=== PATIENT | male | born 1970 | race Hispanic/Latino ===

== ENCOUNTER 2020-08-05 14:40 | Observation (INO) | payer OTHER ==
[2020-08-05 15:26] LABS: #Basophils 0.1 thou/uL (0.0-0.2); #Eosinphils 0.1 thou/uL (0.0-0.7); #Lymphocytes 2.5 thou/uL (1.20-3.40); #Monocytes 0.6 thou/uL (0.11-0.59); #Neutrophils 4.7 thou/uL (1.40-6.50); %Basophils 0.7 % (0.0-1.0); %Eosinophils 0.9 % (0.0-10.0); %Lymphocytes 31.7 % (21.0-51.0); %Monocytes 7.3 % (0.0-10.0); %Neutrophils 59.4 % (42.0-75.0); Mean Corpuscular HGB CONC 34.4 g/dL (32.0-36.0); Mean Corpuscular Hemoglobin 30.9 pg (27.0-31.0); Mean Platelet Volume 8.1 fL (7.4-10.4); Platelet Count 257 thou/uL (130-400); RBC Distribution Width 11.8 % (11.5-14.5); Red Blood Cell (RBC) Count 5.19 mill/uL (4.70-6.10); White Blood Cell (WBC) Count 7.8 thou/uL (4.8-10.8)
--- NOTE | 2020-08-05 15:29 | RAD ---
EXAM: CHEST ONE VIEW HISTORY: Chest pain. Patient states intermittent left-sided chest pain for 3 months. COMPARISON: None FINDINGS: The cardiac silhouette and pulmonary vasculature are within normal limits. The lungs are clear. The o sseous structures are intact. IMPRESSION: No acute cardiopulmonary process.
[2020-08-05] MEDS ORDERED: Aspirin 325 MG TAB ONE (15:35)
[2020-08-05 16:01] LABS: Albumin 4.5 g/dL (3.5-5.0)
[2020-08-05 16:02] LABS: Chloride 104 mmol/L (98-107); Sodium 139 mmol/L (136-145)
[2020-08-05 16:03] LABS: Calcium 9.6 mg/dL (7.8-10.44); Glucose 102 mg/dL (70-105)
[2020-08-05 16:04] LABS: Globulin 3.3 g/dL (2.4-3.5); Protein, Total 7.8 g/dL (6.0-8.3)
[2020-08-05 16:05] LABS: Anion Gap 13 mmol/L (10-20); Bilirubin, Total 0.6 mg/dL (0.2-1.2); Carbon Dioxide 26 mmol/L (22-29)
[2020-08-05 16:06] LABS: Alkaline Phosphatase 101 U/L (40-110)
[2020-08-05 16:07] LABS: Calc. Creatinine Clearance 0 mL/min (70-130); Estimated GFR-MDRD 84
[2020-08-05 16:08] LABS: AST (SGOT) 27 U/L (5-34); BUN (Urea Nitrogen) 14 mg/dL (8.9-20.6)
[2020-08-05 16:09] LABS: ALT (SGPT) 22 U/L (8-55); Lipase 18 U/L (8-78)
[2020-08-05 16:23] LABS: CKMB 3.1 ng/mL (0-6.6)
[2020-08-05] MEDS ORDERED: Senokot S 8.6-50 MG TAB PO PRN (16:59)
[2020-08-05] MEDS ORDERED: Acetaminophen 325 MG TAB PO PRN (16:59)
[2020-08-05] MEDS ORDERED: Enoxaparin Sodium 80 MG/0.8 ML SYRINGE ONE (17:10)
[2020-08-05] MEDS ORDERED: Nitroglycerin 0.4 MG TAB (25 Tab Bottle) SL PRN (17:55)
--- NOTE | 2020-08-05 18:51 | HP ---
CHIEF COMPLAINT: Chest pain. HISTORY OF PRESENT ILLNESS: A 49-year-old male with recent diagnosis of hypertension and intermittent chest pain of 3 months' duration, presenting today for further evaluation. In the first 2 months, he had chest pain on the left side with radiation occasionally to the arms. He made an appointment to see Dr. Fabian. He had a clinic appointment last Monday, but he missed and he came today. In the Cardiology Clinic, EKG done showed T- inversions in V5 and V6. The patient is sent here for further workup. Currently, the patient does not have any chest pain. He says that the chest pain is worsening whenever he does any pushups. 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 He does not smoke. No significant family history of cardiac issues. The patient is not diabetic. He was recently diagnosed with hypertension and he took only 3 doses of lisinopril of 10 mg daily so far. Here, troponin is negative. REVIEW OF SYSTEMS: A 13-point review of systems is reviewed. The patient has no other medical conditions other than listed above. No nausea, vomiting, abdominal pain, constipation, hematuria, dysuria, or hematochezia. No headache, blurriness, tingling, numbness in his extremities. No polyuria, polydipsia. MEDICATIONS: 1. Lisinopril 10 mg daily. 2. Seroquel 100 mg daily. PAST MEDICAL HISTORY: New diagnosis of hypertension. SOCIAL HISTORY: Does not smoke, but drinks alcohol 1 drink daily, but few drinks during the weekend. He is , he has 4 children, 2 grown up and 2 young ones. FAMILY HISTORY: Father does not have any major medical issues. Mother has hypertension. PHYSICAL EXAMINATION: VITAL SIGNS: The patient is afebrile. He is currently normotensive. Saturating above 95% in the room. HEENT: Pupils are equal, round, and reactive to light. Anicteric. Mucous membranes moist. CARDIOVASCULAR: Regular rate and rhythm without murmurs, rubs, or gallops. LUNGS: Clear to auscultation bilaterally without wheezing, rales, or rhonchi. ABDOMEN: Soft, nontender, nondistended. Good bowel sounds. EXTREMITIES: Without any pitting edema. NEUROLOGIC: No focal deficits. PSYCHIATRIC: Appropriate mood and affect. DIAGNOSTIC STUDIES: EKG, T-inversions in the V4 and V5. His CBC in the normal range. His complete metabolic panel in the normal range. His troponin x2 negative. CK-MB is 3.1. IMPRESSION AND PLAN: A 49-year-old male with a history of newly-diagnosed hypertension, presenting with intermittent ongoing chest pain. He received dose of Lovenox and aspirin in the ER. He will get another set of troponin. He will be n.p.o. tonight for nuclear medicine stress test in the morning. Risk factor modification with A1c, lipid panel, and TSH. Aspirin daily and nitroglycerin sublingual as needed for chest pain. He is full code. Job ID: [id number] [facility]
[2020-08-05 19:31] VITALS: BMI 25.0
[2020-08-05] MEDS ORDERED: Lisinopril 10 MG TAB PO SCH (21:00)
[2020-08-06] MEDS ORDERED: Sodium Chloride 0.9% 1,000 ML IV SCH ×2 (06:30→08:15)
[2020-08-06] MEDS ORDERED: Communication Order-Pharmacy FS SCH (06:30)
[2020-08-06] MEDS ORDERED: Lidocaine 1% (PF) 30 ML VIAL ONE (06:43)
[2020-08-06] MEDS ORDERED: Fentanyl 100 MCG/2 ML VIAL ONE (07:10)
[2020-08-06] MEDS ORDERED: Midazolam HCl 2 mg/2 ml Vial ONE (07:10)
[2020-08-06] MEDS ORDERED: Heparin 10,000 UNITS/ 10 ML VIAL ONE (07:17)
[2020-08-06] MEDS ORDERED: Verapamil 5 MG/2 ML VIAL ONE (07:17)
[2020-08-06] MEDS ORDERED: Nitroglycerin 100MG/250ML BOT 250 ML ONE (07:17)
[2020-08-06] MEDS ORDERED: Nitroglycerin 0.4 MG TAB (25 Tab Bottle) SL PRN (08:11)
[2020-08-06] MEDS ORDERED: Sodium Chloride 0.9% 200 ML IV PRN (08:11)
[2020-08-06] MEDS ORDERED: Acetaminophen/Codeine 30-300mg Tablet PO PRN ×2 (08:11)
[2020-08-06] MEDS ORDERED: Iopamidol 370 76% 100 ML VIAL ONE (08:34)
[2020-08-06] MEDS ORDERED: Lisinopril 10 MG TAB PO SCH (09:00)
[2020-08-06] MEDS ORDERED: Aspirin 81 mg Enteric Coated Tablet PO SCH (09:00)
[2020-08-06 10:13] LABS: Anion Gap 11 mmol/L (10-20); BUN (Urea Nitrogen) 13 mg/dL (8.9-20.6); Calc. Creatinine Clearance 125 mL/min (70-130); Calcium 8.8 mg/dL (7.8-10.44); Carbon Dioxide 24 mmol/L (22-29); Cardiac Risk 3.9 (Less than 4.5); Chloride 105 mmol/L (98-107); Cholesterol 151 mg/dl (< 200 Desired); Estimated GFR-MDRD Greater than 90; Glucose 91 mg/dL (70-105); HDL Cholesterol 39 mg/dL (>60 Neg Risk); LDL Cholesterol, Calculated 82 mg/dL; Sodium 136 mmol/L (136-145); Triglycerides 150 mg/dL (Less than 150)
[2020-08-06 10:15] LABS: Hemoglobin A1c 5.4 % (4.0-6.0)
[2020-08-06 12:44] LABS: SARS-CoV-2 MS2 Positive; SARS-CoV-2 N Gene Negative; SARS-CoV-2 S Gene Negative; SARS-CoV-2 by NAA Not Detected (NotDetected); SARS-CoV-2 orf1ab Negative
[2020-08-06 15:23] VITALS: BP 139/86; TEMP 98.1
--- NOTE | 2020-08-06 23:32 | DIS ---
DATE OF ADMISSION: 08/05/2020 DATE OF DISCHARGE: 08/06/2020 DISCHARGE DIAGNOSES: 1. Chest pain, atypical, noncardiac. 2. Hypertension. 3. Dyslipidemia. CONSULTATIONS: Dr. Fabian with Cardiology Service. PERTINENT LABORATORY AND X-RAY FINDINGS: Basic metabolic profile within normal limits. Hemoglobin A1c 5.4. BNP 16.9. Troponin I negative x3. Total cholesterol 151, triglycerides 150, HDL 39, LDL 82. TSH 2.89. CBC within normal limits. COVID-19 PCR not detected, 08/05/2020. Portable chest x-ray dated 08/05/2020, showed no acute cardiopulmonary process. Cardiac catheterization dated 08/06/2020, showed no evidence of significant coronary artery disease. HOSPITAL COURSE: The patient was observed on the telemetry unit after initially presenting with chest pain. The patient underwent serial cardiac biomarkers which were negative x3. Proceeding to cardiac catheterization after EKG showed T-wave inversions in leads V5 and V6. Cardiac catheterization was unrevealing as to significant coronary artery disease. However, the patient was recommended to continue metoprolol-XL 25 mg daily in addition to lisinopril 10 mg daily. I have examined the patient at the time of discharge and discussed followup instructions. The patient verbalizes understanding and agreement, ready for discharge on 08/06/2020. DISCHARGE MEDICATIONS: 1. Lisinopril 10 mg one tablet p.o. daily. 2. Metoprolol-XL 25 mg p.o. daily. FOLLOW UP: The patient may follow up with his primary care provider, Dr. Deangelo Sena. CONDITION ON DISCHARGE: Stable. ACTIVITY: Ad-rashmi. DIET: Heart healthy. CODE STATUS: Full. DISPOSITION: To home, 08/06/2020. Job ID: [id number]
== END 2020-08-06 16:00 | disposition home or self-care (01) ==
LOC: ERS 14:40 → 2SW 16:41
PROVIDERS: ADMIT Internal Medicine; ATTEND Internal Medicine
PROC: 4A023N7 Measurement of Cardiac Sampling and Pressure, Left Heart, Percutaneous Approach (ICD-10-PCS; principal; 2020-08-06)
PROC: B2111ZZ Fluoroscopy of Multiple Coronary Arteries using Low Osmolar Contrast (ICD-10-PCS; 2020-08-06)
DX: R07.89 Other chest pain (principal); I10 Essential (primary) hypertension; E11.9 Type 2 diabetes mellitus without complications; Z79.899 Other long term (current) drug therapy; Z20.828 Contact with and (suspected) exposure to other viral communicable diseases
CPT/HCPCS: 36415; 71045; 80048; 80053; 80061; 82553; 83036; 83690; 83880; 84443; 84484; 85025; 87635; 93005; 93458; 96372; 99152; G0378; J1644; J1650; J2001; J2250; J3010; Q9967; U0003

== ENCOUNTER 2023-12-12 11:54 | Emergency (ER) | payer OTHER, SELFPAY ==
[2023-12-12 12:22] LABS: #Eosinphils 0.1 thou/uL (0.0-0.7); #Monocytes 0.5 thou/uL (0.11-0.59); #Neutrophils 3.3 thou/uL (1.40-6.50); %Basophils 0.5 % (0.0-1.0); %Eosinophils 1.1 % (0.0-10.0); %Lymphocytes 36.9 % (21.0-51.0); %Neutrophils 53.3 % (42.0-75.0); Hematocrit 46.3 % (42.0-52.0); Hemoglobin 15.9 g/dL (14.0-18.0); Mean Corpuscular HGB CONC 34.3 g/dL (32.0-36.0); Mean Corpuscular Hemoglobin 30.3 pg (27.0-31.0); Mean Corpuscular Volume 88.2 fl (78.0-98.0); Mean Platelet Volume 9.9 fL (7.4-10.4); Platelet Count 285 10x3/uL (130-400); RBC Distribution Width 12.7 % (11.5-14.5); Red Blood Cell (RBC) Count 5.25 mill/uL (4.70-6.10); White Blood Cell (WBC) Count 6.2 10x3/uL (4.8-10.8)
[2023-12-12 12:46] LABS: ALT (SGPT) 18 U/L (8-55); AST (SGOT) 23 U/L (5-34); Albumin 4.6 g/dL (3.5-5.0); Alkaline Phosphatase 97 U/L (40-110); Anion Gap 10 mmol/L (10-20); BUN (Urea Nitrogen) 16 mg/dL (8.4-25.7); Bilirubin, Total 0.7 mg/dL (0.2-1.2); Calc. Creatinine Clearance 0 mL/min (70-130); Calcium 9.7 mg/dL (7.8-10.44); Carbon Dioxide 24 mmol/L (22-29); Chloride 108 mmol/L (98-107); Estimated GFR 103; Glucose 105 mg/dL (70-105); Lipase 18 U/L (8-78); Potassium 4.3 mmol/L (3.5-5.1); Protein, Total 7.6 g/dL (6.0-8.3); Sodium 138 mmol/L (136-145)
[2023-12-12 12:49] LABS: Troponin I Less than 0.010 ng/mL (< 0.028)
== END 2023-12-12 13:35 | disposition home or self-care (01) ==
LOC: ERS 11:54
DX: R07.9 Chest pain, unspecified (principal); R94.31 Abnormal electrocardiogram [ECG] [EKG]; Z55.6 Problems related to health literacy
CPT/HCPCS: 36415; 71046; 80053; 83690; 84484; 85025; 93005